=== PATIENT | male | born 1940 | race African-American/Black ===

== ENCOUNTER 2017-12-05 12:57 | Emergency (ER) | payer OTHER ==
[~2017-12-05] VITALS: Ht 175.3 cm; Wt 88.9 kg
[2017-12-05] MEDS ORDERED: PLAVIX75 MG (13:29)
[2017-12-05] MEDS ORDERED: AMLODIPINE-OLM1 EAC1 (13:30)
== END 2017-12-05 18:21 | disposition home or self-care (01) ==
LOC: ER 12:57
DX: M54.5 Low back pain (principal)